=== PATIENT | female | born 1995 ===

== ENCOUNTER 2022-04-11 14:51 | Emergency (ER) | payer MEDICAID ==
[~2022-04-11] VITALS: Ht 162.6 cm; Wt 63.6 kg
[2022-04-11 16:09] VITALS: BP 145/73
[2022-04-11] MEDS ORDERED: IBUP-2070 PO (20:33)
[2022-04-11] MEDS ORDERED: FLUC150T61 PO (20:33)
[2022-04-11] MEDS ORDERED: CEPH-558 PO (20:33)
== END 2022-04-11 16:19 | disposition left against medical advice (07) ==
LOC: EMS 14:54
DX: Z53.21 Procedure and treatment not carried out due to patient leaving prior to being seen by health care provider (principal)
CPT/HCPCS: 84703

== ENCOUNTER 2022-04-11 17:32 | Emergency (ER) | payer MEDICAID ==
[~2022-04-11] VITALS: Ht 160 cm; Wt 72.7 kg
[2022-04-11 17:35] VITALS: BP 134/84
[2022-04-11] MEDS ORDERED: LIDOCAINE/PF 1% 30 ML VIAL ID ONE (19:45)
[2022-04-11] MEDS ORDERED: CEPH-558 PO (20:33)
[2022-04-11] MEDS ORDERED: IBUP-2070 PO (20:33)
[2022-04-11] MEDS ORDERED: FLUC150T61 PO (20:33)
== END 2022-04-11 21:08 | disposition home or self-care (01) ==
LOC: EMS 17:34
DX: S01.81XA Laceration without foreign body of other part of head, initial encounter (principal); F17.210 Nicotine dependence, cigarettes, uncomplicated; F12.90 Cannabis use, unspecified, uncomplicated; F15.90 Other stimulant use, unspecified, uncomplicated; W01.10XA Fall on same level from slipping, tripping and stumbling with subsequent striking against unspecified object, initial encounter; Y93.89 Activity, other specified; Y92.89 Other specified places as the place of occurrence of the external cause; Y99.8 Other external cause status
CPT/HCPCS: 99283; 12013; J3490